=== PATIENT | female | born 1965 | race Caucasian/White ===

== ENCOUNTER 2023-12-10 18:17 | Outpatient (RCR) | payer BC, SELFPAY | END 2023-12-10 23:59 | disposition home or self-care (01) | LOC: RPT 18:17 | PROVIDERS: ATTENDING PHYSICIAN Urology; PRIMARYCARE PHYSICIAN Internal Medicine | DX: N39.3 Stress incontinence (female) (male) (principal); M62.89 Other specified disorders of muscle; Z73.6 Limitation of activities due to disability | CPT/HCPCS: 97110; 97140; 97530 ==

== ENCOUNTER 2023-12-23 19:02 | Outpatient (RCR) | payer BC, SELFPAY | END 2023-12-23 23:59 | disposition home or self-care (01) | LOC: RPT 19:02 | PROVIDERS: ATTENDING PHYSICIAN Urology; PRIMARYCARE PHYSICIAN Internal Medicine | DX: N39.3 Stress incontinence (female) (male) (principal); M62.89 Other specified disorders of muscle; Z73.6 Limitation of activities due to disability; N30.10 Interstitial cystitis (chronic) without hematuria; N39.42 Incontinence without sensory awareness; N94.10 Unspecified dyspareunia | CPT/HCPCS: 97530 ==

== ENCOUNTER → 2023-12-25 07:09 | Outpatient (REF) | payer BC, SELFPAY | LOC: WDC 07:09 | PROVIDERS: ATTENDING PHYSICIAN Obstetrics & Gynecology Gynecology; FAMILY PHYSICIAN Internal Medicine | DX: Z12.31 Encounter for screening mammogram for malignant neoplasm of breast (principal) | CPT/HCPCS: 77063; 77067 ==

== ENCOUNTER → 2024-01-23 17:08 | Outpatient (REF) | payer BC, SELFPAY | LOC: RAD 17:08 | PROVIDERS: ATTENDING PHYSICIAN Urology; FAMILY PHYSICIAN Internal Medicine | DX: N30.10 Interstitial cystitis (chronic) without hematuria (principal); M62.89 Other specified disorders of muscle; N39.42 Incontinence without sensory awareness; N39.0 Urinary tract infection, site not specified; N39.3 Stress incontinence (female) (male); N94.10 Unspecified dyspareunia | CPT/HCPCS: 76770; 76856 ==

== ENCOUNTER → 2024-12-25 13:33 | Outpatient (REF) | payer BC, SELFPAY | LOC: WDC 13:33 | PROVIDERS: ATTENDING PHYSICIAN Obstetrics & Gynecology Gynecology; FAMILY PHYSICIAN Internal Medicine | DX: Z12.31 Encounter for screening mammogram for malignant neoplasm of breast (principal) | CPT/HCPCS: 77063; 77067 ==

== ENCOUNTER → 2025-03-28 08:37 | Outpatient (REF) | payer SELFPAY | LOC: HWRAD 08:37 | PROVIDERS: ATTENDING PHYSICIAN Internal Medicine | DX: E78.5 Hyperlipidemia, unspecified (principal); I10 Essential (primary) hypertension; R79.82 Elevated C-reactive protein (CRP) | CPT/HCPCS: 75571 ==

== ENCOUNTER → 2025-03-28 08:45 | Outpatient (REF) | payer BC, SELFPAY | LOC: HWRAD 08:45 | PROVIDERS: ATTENDING PHYSICIAN Internal Medicine | DX: M54.50 Low back pain, unspecified (principal); M25.551 Pain in right hip; M25.552 Pain in left hip | CPT/HCPCS: 72100; 73523 ==